=== PATIENT | male | born 1990 | race Caucasian/White ===

== ENCOUNTER 2020-09-30 09:48 | Emergency (ER) | payer SELFPAY ==
[2020-09-30 11:42] LABS: Hemoglobin 14.5 g/dL (14.0-18.0); Mean Corpuscular HGB CONC 34.8 g/dL (32.0-36.0); Mean Corpuscular Hemoglobin 30.1 pg (27.0-31.0); Mean Corpuscular Volume 86.6 fL (78.0-98.0); Mean Platelet Volume 6.8 fL (7.4-10.4); Platelet Count 227 thou/uL (130-400); RBC Distribution Width 12.1 % (11.5-14.5); Red Blood Cell (RBC) Count 4.83 mill/uL (4.70-6.10); White Blood Cell (WBC) Count 11.7 thou/uL (4.8-10.8)
[2020-09-30] MEDS ORDERED: Ketorolac Tromethamine 30 MG/ML VIAL ONE (11:45)
[2020-09-30] MEDS ORDERED: Clindamycin/D5W 900 mg/50 ml Premix Bag ONE (11:45)
[2020-09-30] MEDS ORDERED: Dexamethasone 10 MG/ML VIAL ONE (11:45)
[2020-09-30 12:11] LABS: ALT (SGPT) 288 U/L (8-55); AST (SGOT) 108 U/L (5-34); Alkaline Phosphatase 121 U/L (40-110); BUN (Urea Nitrogen) 8 mg/dL (8.9-20.6); Calc. Creatinine Clearance 0 mL/min (70-130); Calcium 8.4 mg/dL (7.8-10.44); Carbon Dioxide 24 mmol/L (22-29); Chloride 101 mmol/L (98-107); Globulin 3.5 g/dL (2.4-3.5); Glucose 120 mg/dL (70-105); Potassium 3.6 mmol/L (3.5-5.1); Protein, Total 7.5 g/dL (6.0-8.3); Sodium 136 mmol/L (136-145)
[2020-09-30 12:21] LABS: Band 6 % (5-11); Lymphocytes 42 % (21-51); MDiff Complete? YES; Monocytes 6 % (0-10); Neutrophil 29 % (42-75); Platelet Morphology Comment Appears Adequate; RBC Morphology Normal; Reactive Lymphocytes 17 % (0-10)
[2020-09-30 12:27] LABS: Anion Gap 13 mmol/L (10-20)
[2020-09-30] MEDS ORDERED: Ondansetron PF 4 MG/2 ML Vial ONE (13:25)
== END 2020-09-30 13:45 | disposition home or self-care (01) ==
LOC: ERS 09:48
DX: J02.9 Acute pharyngitis, unspecified (principal)
CPT/HCPCS: 80053; 85025; 87081; 87430; 96365; 96375; J1100; J1885; J2405; J3490

== ENCOUNTER 2023-09-22 10:52 | Emergency (ER) | payer SELFPAY ==
[2023-09-22] MEDS ORDERED: traMADol HCl 50 MG TAB ONE (11:20)
== END 2023-09-22 12:26 | disposition home or self-care (01) ==
LOC: ERS 10:52
DX: S93.402A Sprain of unspecified ligament of left ankle, initial encounter (principal); W22.8XXA Striking against or struck by other objects, initial encounter; Y93.01 Activity, walking, marching and hiking